=== PATIENT | female | born 1965 | race Caucasian/White ===

== ENCOUNTER 2020-06-27 06:57 | Outpatient (REF) | payer BC, SELFPAY ==
[2020-06-27 11:09] LABS: MANUAL DIFF FLAG NO
[2020-06-27 11:23] LABS: Glucose Urine UA NEG (NEG); Leukocyte Esterase Urine NEG (NEG); Nitrite Urine NEG (NEG); Specific Gravity - Urine <= 1.005 (1.005-1.025); Urine Blood TRACE (NEG); Urine Ketones NEG (NEG); Urine Protein NEG (NEG-TRACE)
[2020-06-27 11:26] LABS: Appearance Urine CLEAR; Color Urine YELLOW
[2020-06-27 11:42] LABS: Alanine Aminotransferase 17 U/L (0-31); Albumin Level 4.2 g/dL (3.5-5.0); Alkaline Phosphatase 63 U/L (39-117); Anion Gap 13 (12-20); Aspartate Amino Transferase 21 U/L (5-31); Bilirubin Total 0.5 mg/dL (0.0-1.0); Blood Urea Nitrogen 11 mg/dL (9-16); Calcium 8.8 mg/dL (8.4-10.2); Carbon Dioxide 29 mmol/L (22-29); Chloride 105 mmol/L (96-108); Cholesterol 145 mg/dL; Estimated Glomerular Filt Rate > 60; Glucose Fasting 89 mg/dL (60-99); HDL Cholesterol 42 mg/dL; LDL Cholesterol Calculated 87 mg/dl; Potassium 5.2 mmol/L (3.3-5.1); Sodium 142 mmol/L (135-145); Total Protein 6.6 g/dL (6.5-8.0); Triglycerides 80 mg/dL
[2020-06-27 11:43] LABS: Basophils Absolute Auto 0.1 X10*3/uL (0.0-0.2); Basophils Percent Auto 0.9 % (0-2); Eosinophils Absolute Auto 0.3 X10*3/uL (0.0-0.4); Eosinophils Percent Auto 4.9 % (0-4); Hematocrit 42.5 % (37-47); Hemoglobin 13.6 g/dl (12.0-16.0); Imm Gran Abs Auto 0.02 X10*3/uL (0.00-0.03); Imm Gran Pct Auto 0.3 % (0.0-0.4); Lymphocytes Absolute Auto 2.5 X10*3/uL (1.2-4.9); Lymphocytes Percent Auto 38.6 % (20-40); Mean Corpuscular Hemoglobin 30.2 pg (27.0-33.0); Mean Corpuscular Volume 94.4 fL (80-98); Mean Platelet Volume 11.4 fL (9.4-12.3); Monocytes Absolute Auto 0.7 X10*3/uL (0.1-1.2); Monocytes Percent Auto 10.3 % (2-11); Neutrophils Absolute Auto 2.9 X10*3/uL (2.0-8.3); Platelet Count 311 X10*3/uL (160-400); Red Cell Distribution Width 12.4 % (11.0-16.0); White Blood Count 6.5 X10*3/uL (4.8-10.8)
[2020-06-27 11:58] LABS: RBC Urine 0-2 /HPF (0); Squamous Epithelial Cell Urine TRACE /LPF; WBC Urine 0 /HPF (0-4)
[2020-06-27 12:05] LABS: TSH reflex Free T4 1.89 uIU/mL (0.32-4.0); Vitamin D 25-OH Total 24.1 ng/mL (>30)
== END 2020-06-27 06:58 | disposition home or self-care (01) ==
LOC: HO.HMGCLDS 06:57
PROVIDERS: PCP Internal Medicine; Visit Provider Internal Medicine
DX: Z00.00 Encounter for general adult medical examination without abnormal findings (principal)
CPT/HCPCS: 36415; 80053; 80061; 81001; 82306; 84443; 85025

== ENCOUNTER 2020-10-27 10:24 | Outpatient (REF) | payer BC, SELFPAY ==
--- NOTE | ~2020-10-27 | CT_ITS ---
EXAMINATION: CT CHEST SCREENING CLINICAL INFORMATION: Smoking history COMPARISON: None. TECHNIQUE: Multidetector volumetric CT imaging of the chest is performed without contrast using low dose technique. Additional 2D coronal and sagittal reformatted images and axial 3D maximum intensity projection (MIP) images are generated on the CT workstation. This CT examination was performed using dose optimization techniques as appropriate, variously including the following: *Automated exposure control *Adjustment of mA and/or kV according to patient size (this includes techniques or standardized protocols for targeted exams where dose is matched to indication/reason for exam; i.e. extremities or head) *Use of iterative reconstruction technique DLP: 45 mGy-cm FINDINGS: LUNGS: There is a 2 mm calcified right upper lobe nodule axial image 119 series 5. There is a 3 mm noncalcified right upper lobe nodule axial 155 series 5. There are increased peripheral interstitial markings seen in the anterior right upper lobe probably related to previous chest wall radiation. There is minimal subsegmental atelectasis at the lung bases. MEDIASTINUM: The mediastinum is normal. PLEURA: There is no pleural effusion. No pleural mass or thickening. AXILLA: There are surgical clips in the right breast. No chest wall mass or enlarged axillary lymph nodes are seen. UPPER ABDOMEN: Unremarkable OSSEOUS STRUCTURES: There are degenerative changes of the spine. CT/CT lung screening IMPRESSION: Small pulmonary nodules. Increased peripheral interstitial markings in the anterior right upper lobe likely related to previous chest wall radiation. Surgical changes in the right breast. ASSESSMENT: Lung-RADS category 2: Benign RECOMMENDATION: Annual low-dose chest CT follow-up recommended.
== END 2020-10-27 10:25 | disposition home or self-care (01) ==
LOC: HO.CT 10:24
PROVIDERS: Visit Provider Surgery
DX: Z12.2 Encounter for screening for malignant neoplasm of respiratory organs (principal); F17.210 Nicotine dependence, cigarettes, uncomplicated
CPT/HCPCS: 71271

== ENCOUNTER 2021-07-18 06:12 | Outpatient (REF) | payer BC, SELFPAY ==
[2021-07-18 11:32] LABS: Appearance Urine HAZY; Color Urine YELLOW; Glucose Urine UA NEG (NEG); Leukocyte Esterase Urine NEG (NEG); Nitrite Urine NEG (NEG); Specific Gravity - Urine 1.015 (1.005-1.025); Urine Blood NEG (NEG); Urine Ketones NEG (NEG); Urine Protein NEG (NEG-TRACE)
[2021-07-18 11:43] LABS: Hematocrit 42.1 % (37.0-47.0); Hemoglobin 13.4 g/dl (12.0-16.0); Mean Corpuscular HGB Conc 31.8 g/dl (31.0-35.0); Mean Corpuscular Hemoglobin 30.2 pg (27.0-33.0); Mean Platelet Volume 11.3 fL (9.4-12.3); Platelet Count 314 X10*3/uL (160-400); Red Blood Count 4.43 X10*6/uL (4.20-5.50); Red Cell Distribution Width 12.4 % (11.0-16.0); White Blood Count 6.8 X10*3/uL (4.8-10.8)
[2021-07-18 11:57] LABS: RBC Urine 0 /HPF (0); WBC Urine 0-2 /HPF (0-4)
[2021-07-18 11:58] LABS: Amorphous Sediment Urine 3+ /LPF; Calcium Oxalate Crystals Urine 3+ /LPF; Squamous Epithelial Cell Urine TRACE /LPF
[2021-07-18 12:03] LABS: Alanine Aminotransferase 20 U/L (0-31); Albumin Level 4.2 g/dL (3.5-5.0); Alkaline Phosphatase 72 U/L (39-117); Anion Gap 10 (12-20); Aspartate Amino Transferase 18 U/L (5-31); Bilirubin Total 0.4 mg/dL (0.0-1.0); Blood Urea Nitrogen 14 mg/dL (9-16); Calcium 9.5 mg/dL (8.4-10.2); Carbon Dioxide 29 mmol/L (22-29); Chloride 106 mmol/L (96-108); Cholesterol 157 mg/dL; Estimated Glomerular Filt Rate > 60; Glucose Fasting 96 mg/dL (60-99); HDL Cholesterol 45 mg/dL; LDL Cholesterol Calculated 98 mg/dl; Potassium 4.2 mmol/L (3.3-5.1); Sodium 141 mmol/L (135-145); Total Protein 6.8 g/dL (6.5-8.0); Triglycerides 70 mg/dL
[2021-07-18 12:27] LABS: TSH reflex Free T4 3.97 uIU/mL (0.32-4.0); Vitamin D 25-OH Total 29.2 ng/mL (>30)
== END 2021-07-18 06:13 | disposition home or self-care (01) ==
LOC: HO.HMGCLDS 06:12
PROVIDERS: Visit Provider Internal Medicine
DX: Z00.00 Encounter for general adult medical examination without abnormal findings (principal); Z13.220 Encounter for screening for lipoid disorders; Z13.29 Encounter for screening for other suspected endocrine disorder
CPT/HCPCS: 36415; 80053; 80061; 81001; 82306; 84443; 85027

== ENCOUNTER 2022-11-23 09:31 | Outpatient (AMB) | payer BC, SELFPAY ==
[2022-11-23 09:33] VITALS: BP 118/64; PULSE 80; O2SAT 98; BMI 22.1
--- NOTE | 2022-11-23 09:33 | A.OFFPC_ITS ---
Vital Signs 11/23/22 09:33 Height 5 ft 8 in Weight 145 lb 2 oz BMI 22.1 BP 118/64 Blood Pressure Location Rt brachial Position Sitting Pulse 80 Pulse Source Pulse Oximeter Pulse Oximetry (%) 98 Oxygen Delivery Method Room Air Intake Visit Reasons: Annual PE Allergies No Known Allergies Allergy (Verified 11/23/22 09:35) Medication List - Last Reconciled 11/23/22 by Amie Phelps MD bisacodyl (Dulcolax (bisacodyl)) 10 mg (2 x 5 mg) PO ONCE 1 day clonazepam 0.5 mg PO DAILY polyethylene glycol 3350 (Miralax) 238 grams PO ONCE 1 day Tobacco use date assessed: 11/23/22 Dental Screening Dental Screen Date: 11/23/22 Did you have a dental visit in the last 12 months?: Yes Did you have a dental problem in the last 6 months where you did not have access to dental care?: No Was dental information given to patient?: Patient has dentist HPI Annual PE HPI Details Pt presents for PE. COUNTS INCLUDE 234 BEDS AT THE [facility] Medical History (Updated 11/23/22 @ 10:07 by Amie Phelps MD) Annual physical exam Anxiety Breast cancer, right Normal Pap smear Tobacco dependence Surgical History H/O colonoscopy Family History Father HTN (hypertension) Mother HTN (hypertension) Mental health disorder Sister Breast cancer Paternal Grandfather Substance use disorder Maternal Grandmother Substance use disorder Sister Mental health disorder Family/Other Mental health disorder Social History Housing: Condominium Alcohol intake: current Alcohol intake frequency: a few times a month Patient Tobacco Use Status: Former Tobacco user (4 weeks ago) e-Cigarette/Vaping Use: Never Used Current occupational status: employed Cognitive needs: No Hearing needs: No Vision needs: No Questionnaire PHQ-9 Over the last 2 weeks, how often have you been bothered by any of the following problems? 1. Little interest or pleasure in doing things: not at all 2. Feeling down, depressed, or hopeless: several days 3. Trouble falling or staying asleep, or sleeping too much: several days 4. Feeling tired or having little energy: several days 5. Poor appetite or overeating: not at all 6. Feeling bad about yourself - or that you are a failure or have let yourself or your family down: several days 7. Trouble concentrating on things, such as reading the newspaper or watching television: not at all 8. Moving or speaking so slowly that other people could have noticed. Or the opposite - being so fidgety or restless that you have been moving around a lot more than usual: not at all 9. Thoughts that you would be better off or of hurting yourself in some way: not at all Total score: 4 Source: Developed by Drs. Willard Ziegler, Gayatri Serrano, Damian Urrutia and colleagues, with an educational pollo from [employer]. Thrive Questionnaire Date Thrive assessed: 11/23/22 I am a: Patient What is your living situation today?: I have a steady place to live Within the past 12 months, did the food you bought not last and you didn't have the money to get more?: Never true Within the past 12 months, did you worry whether your food would run out before you got money to buy more?: Never true Do you have trouble paying for medicines?: No Do you have trouble getting transportation to medical appointments?: No Do you have trouble paying your heating and electricity bill?: No Do you have trouble taking care of your child, family member or friend?: No Do you have trouble with day-to-day activities such as bathing, preparing meals, shopping, managing finances, etc.?: No Are you currently unemployed and looking for a job?: No Are you interested in more education?: No AUDIT C Alcohol Use Questionnaire (AUDIT-C) 1. How often do you have a drink containing alcohol?: 2-4 times a month 2. How many drinks containing alcohol do you have on a typical day when you are drinking?: 3 or 4 3. How often do you have six or more drinks on one occasion?: Monthly Total Score: 5 ALANIS-7 AMB Questionnaire ALANIS-7 Date ALANIS - 7 assessed: 11/23/22 Feeling nervous, anxious, or on edge: 1 = Several days Not being able to stop or control worryin = Several days Worrying too much about different things: 1 = Several days Trouble relaxin = Several days Being so restless that it is hard to sit still: 0 = Not at all Becoming easily annoyed or irritable: 0 = Not at all Feeling afraid as if something awful might happen: 0 = Not at all Total ALANIS-7 score (0-4 normal; 5-9 mild; 10-14 moderate; 15-21 severe): 4 Source: Developed by Drs. Willard Ziegler, Gayatri Serrano, Damian Urrutia and colleagues, with an educational pollo from [employer]. Review of Systems Const All systems reviewed & are unremarkable except as noted in HPI and below Reports no additional complaints Eyes Reports no additional complaints ENT Reports no additional complaints Card Reports no additional complaints Resp Reports no additional complaints GI Reports no additional complaints Reports no additional complaints Physical exam (Primary Care) Vital Signs: Last Vital Signs Pulse 80 11/23/22 09:33 BP 118/64 11/23/22 09:33 Pulse Ox 98 11/23/22 09:33 Oxygen Delivery Method Room Air 11/23/22 09:33 BMI result Body Mass Index 22.1 Tobacco/Smoking Status: Tobacco use Status Tobacco use date assessed 11/23/22 11/23/22 09:39 Patient Tobacco Use Status Former Tobacco user (4 weeks 11/23/22 09:39 ago) e-Cigarette/Vaping Use Never Used 11/23/22 09:39 Thrive Assessment: Date of Thrive Assessment Date Thrive assessed 07/12/21 11/23/22 09:39 Const General: no acute distress HENMT Head: Yes normal to inspection Ears: hearing grossly normal bilaterally Face and sinus: Yes normal facial exam Mouth: Normal oral and palatal mucosa present Throat: Yes posterior oropharynx normal Eyes General: appearance normal, both eyes and all related structures Neck Neck: Yes no lymphadenopathy and Yes supple Resp Effort & Inspection: normal respiratory effort Auscultation: clear to auscultation bilaterally Cardio Rhythm: regular rhythm Heart sounds: S1 normal heart sound present and S2 normal heart sound present GI Inspection: Yes normal to inspection Palpation (GI): Soft to palpation Percussion: Yes normal to percussion Auscultation: normal bowel sounds Assessment and Plan Assessment & Plan (1) Breast cancer, right: Comment: at 49, s/p lumpectomy, on Tamoxifen for 5 years,positive genes, oncology [facility] q 6 months MR/mammogram Code(s): C50.911 - Malignant neoplasm of unspecified site of right female breast (2) Tobacco dependence: Comment: quit 12/2021 Code(s): F17.200 - Nicotine dependence, unspecified, uncomplicated (3) Anxiety: Code(s): F41.9 - Anxiety disorder, unspecified (4) Annual physical exam: Code(s): Z00.00 - Encounter for general adult medical examination without abnormal findings Plan: Well-balanced diet regular exercise discussed with the patient. 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 Panel Fast Today C50.911 - Malignant neoplasm of unspecified site of right female breast, F17.200 - Nicotine dependence, unspecified, uncomplicated, F41.9 - Anxiety disorder, unspecified, Z00.00 - Encounter for general adult medical examination without abnormal findings Lipid Panel Today C50.911 - Malignant neoplasm of unspecified site of right female breast, F17.200 - Nicotine dependence, unspecified, uncomplicated, F41.9 - Anxiety disorder, unspecified, Z00.00 - Encounter for general adult medical examination without abnormal findings TSH reflex Free T4 Today C50.911 - Malignant neoplasm of unspecified site of right female breast, F17.200 - Nicotine dependence, unspecified, uncomplicated, F41.9 - Anxiety disorder, unspecified, Z00.00 - Encounter for general adult medical examination without abnormal findings Complete Blood Count no Diff Today C50.911 - Malignant neoplasm of unspecified site of right female breast, F17.200 - Nicotine dependence, unspecified, uncomplicated, F41.9 - Anxiety disorder, unspecified, Z00.00 - Encounter for general adult medical examination without abnormal findings UA w Microscopic Today C50.911 - Malignant neoplasm of unspecified site of right female breast, F17.200 - Nicotine dependence, unspecified, uncomplicated, F41.9 - Anxiety disorder, unspecified, Z00.00 - Encounter for general adult medical examination without abnormal findings XR DEXA axial skeleton Today Z78.0 - Asymptomatic menopausal state Referrals General Surgery Referral L72.9 - Follicular cyst of the skin and subcutaneous tissue, unspecified Coding Level of Care Code Est Pt Prev Care 40-64y(52826) Diagnoses Breast cancer, right C50.911 Tobacco dependence F17.200 Anxiety F41.9 Annual physical exam Z00.00 Normal Pap smear Skin cysts, generalized L72.9 Postmenopausal Z78.0
== END 2022-11-23 10:08 | disposition home or self-care (01) ==
PROVIDERS: PCP Internal Medicine; Visit Provider Internal Medicine
DX: C50.911 Malignant neoplasm of unspecified site of right female breast (principal); F17.200 Nicotine dependence, unspecified, uncomplicated; F41.9 Anxiety disorder, unspecified; Z00.00 Encounter for general adult medical examination without abnormal findings; L72.9 Follicular cyst of the skin and subcutaneous tissue, unspecified; Z78.0 Asymptomatic menopausal state
CPT/HCPCS: 99396

== ENCOUNTER 2022-12-07 09:38 | Outpatient (AMB) | payer BC, SELFPAY ==
--- NOTE | 2022-12-07 09:40 | A.OFFVIS_ITS ---
Intake Vital Signs 12/07/22 09:55 Height 5 ft 8 in Weight 145 lb 8 oz BMI 22.1 BP 143/70 H Blood Pressure Location Lt brachial Position Sitting Intake Visit Reasons: skin cysts Intake Note: Patient is seen in office for evaluation and treatment of a skin cyst of the back. Patient c/o: onset for yrs, got infected once and was lanced, has increase in size, denies discharge, redness or swelling or other concerns Logistics Associate Required: No Accompanied by: Self / Same As Patient Allergies No Known Allergies Allergy (Verified 12/07/22 09:52) Medication List - Last Reconciled 12/07/22 by Walt Shaikh MD clonazepam 0.5 mg PO DAILY HPI HPI Comments History of Present Illness Details 57-year-old female patient presenting for evaluation of several sebaceous cysts of the back. They have been present for many years and have gradually increased in size. She reports 2 of the lesions have become infected and required drainage. She denies any current pain, redness or discharge but is concerned about the size of the lesions. She is requesting excision of all 3 lesions if possible. She has had other lesions located in the armpit and abdomen 1 of which was excised in the 2nd of which resolved spontaneously. [facility] Medical History Annual physical exam Anxiety Breast cancer, right Normal Pap smear Tobacco dependence Surgical History H/O colonoscopy Family History Father HTN (hypertension) Mother HTN (hypertension) Mental health disorder Sister Breast cancer, Onset Age: 53 Paternal Grandfather Substance use disorder Maternal Grandmother Substance use disorder Sister Mental health disorder Breast cancer, Onset Age: 62 Family/Other Mental health disorder Social History Housing: Condominium Alcohol intake: current Alcohol intake frequency: a few times a month Patient Tobacco Use Status: Former Tobacco user (4 weeks ago) e-Cigarette/Vaping Use: Never Used Current occupational status: employed Cognitive needs: No Hearing needs: No Vision needs: No Review of Systems Const All systems reviewed & are unremarkable except as noted in HPI and below Denies chills, Denies fever(s), Denies headache(s), Denies poor appetite and Denies weakness ENT Denies headache(s) Card Denies chest pain, Denies irregular heart rhythm, Denies palpitations and Denies dyspnea Resp Denies cough, Denies excessive phlegm production and Denies dyspnea GI Denies abdominal pain, Denies bloating, Denies change in bowel habits, Denies constipation, Denies heartburn, Denies diarrhea, Denies nausea and Denies vomiting Denies urinary frequency Musc Denies back pain, Denies muscle weakness and Denies numbness Skin/Breast Reports as per HPI, Denies changing lesions and Denies unusual bruising Neuro Denies headache(s), Denies numbness, Denies paresthesias and Denies weakness Psych Denies anxiety and Denies depression Endo Denies palpitations [place]/Lymph Denies lymphadenopathy Physical Exam Vital Signs: Last Vital Signs BP 143/70 H 12/07/22 09:55 BMI result Body Mass Index 22.1 Const General: cooperative and no acute distress Nutritional Appearance: well nourished Orientation/consciousness: patient oriented x3 Limitations: no limitations HEENT Head: Yes normocephalic and Yes atraumatic Ears: hearing grossly normal bilaterally Resp Effort & Inspection: normal respiratory effort, no audible wheezes, no cough and no respiratory distress Cardio Jugular venous distension: no JVD GI Inspection: Yes normal to inspection Back/Spine/Pelvis Back/spine/pelvis image: 1. 3 cm sebaceous cyst 2. 1.5 cm sebaceous cyst 3. 1 cm sebaceous cyst Skin Other: Warm, dry, no rash, skin lesions as noted above. Neuro General: patient oriented x3 Extrem General: Yes no clubbing, cyanosis or edema Assessment & Plan Assessment & Plan (1) Skin cysts, generalized: Comment: upper back 2 cm and 5 cm in diameter Code(s): L72.9 - Follicular cyst of the skin and subcutaneous tissue, unspecified Plan 57-year-old female patient presenting with several sebaceous cyst which are increasing in size and of previously become infected. Patient is requested excision which certainly seems like a good idea given the size of the lesions. I reviewed the procedure, risks, and alternatives and recommended an excision under local anesthesia as a minor surgery. She consents to the surgery and will be scheduled at her convenience. Coding Level of Care Code New Pt Level 4 (62406) Diagnoses Skin cysts, generalized L72.9
[2022-12-07 09:55] VITALS: BP 143/70; BMI 22.1
== END 2022-12-07 10:01 | disposition home or self-care (01) ==
PROVIDERS: PCP Internal Medicine; Visit Provider Surgery
DX: L72.9 Follicular cyst of the skin and subcutaneous tissue, unspecified (principal)
CPT/HCPCS: 99204

== ENCOUNTER → 2022-12-07 09:38 | Outpatient (BNVA) | payer BC, SELFPAY | PROVIDERS: PCP Internal Medicine; Visit Provider Surgery ==

== ENCOUNTER 2022-12-18 06:31 | Outpatient (REF) | payer BC, SELFPAY ==
[2022-12-18 11:53] LABS: Appearance Urine Clear; Color Urine Yellow; Glucose Urine UA Negative (Negative); Leukocyte Esterase Urine Negative (Negative); Nitrite Urine Negative (Negative); Specific Gravity - Urine 1.015 (1.005-1.025); Urine Blood Negative (Negative); Urine Ketones Negative (Negative); Urine Protein Negative (Neg-Trace)
[2022-12-18 11:59] LABS: Bacteria Urine None Seen (None Seen); Hyaline Casts Urine 0-2 /LPF (0-2); RBC Urine 0-2 /HPF (0-2); Squamous Epithelial Cell Urine 0-2 /HPF (0-2); WBC Urine 0-5 /HPF (0-5)
[2022-12-18 12:00] LABS: Hematocrit 42.2 % (37.0-47.0); Hemoglobin 13.6 g/dl (12.0-16.0); Mean Corpuscular HGB Conc 32.2 g/dl (31.0-35.0); Mean Corpuscular Hemoglobin 30.8 pg (27.0-33.0); Mean Corpuscular Volume 95.7 fL (80.0-98.0); Mean Platelet Volume 10.9 fL (9.4-12.3); Platelet Count 338 X10*3/uL (160-400); Red Blood Count 4.41 X10*6/uL (4.20-5.50); Red Cell Distribution Width 12.2 % (11.0-16.0); White Blood Count 6.7 X10*3/uL (4.8-10.8)
[2022-12-18 12:11] LABS: Alanine Aminotransferase 17 U/L (0-31); Albumin Level 4.1 g/dL (3.5-5.0); Alkaline Phosphatase 96 U/L (39-117); Anion Gap 15 (12-20); Aspartate Amino Transferase 21 U/L (5-31); Bilirubin Total 0.5 mg/dL (0.0-1.0); Blood Urea Nitrogen 9 mg/dL (9-16); Calcium 9.7 mg/dL (8.4-10.2); Carbon Dioxide 26 mmol/L (22-29); Chloride 105 mmol/L (96-108); Cholesterol 166 mg/dL (<200); Estimated Glomerular Filt Rate > 60; Glucose Fasting 95 mg/dL (60-99); HDL Cholesterol 56 mg/dL (>40); LDL Cholesterol Calculated 93 mg/dL (<100); Potassium 3.9 mmol/L (3.3-5.1); Sodium 142 mmol/L (135-145); Total Protein 6.7 g/dL (6.5-8.0); Triglycerides 87 mg/dL (<150)
[2022-12-18 12:28] LABS: TSH reflex Free T4 2.73 uIU/mL (0.32-4.0)
== END 2022-12-18 06:32 | disposition home or self-care (01) ==
LOC: HO.HMGCLDS 06:31
PROVIDERS: PCP Internal Medicine; Visit Provider Internal Medicine
DX: Z00.00 Encounter for general adult medical examination without abnormal findings (principal); F41.9 Anxiety disorder, unspecified; F17.200 Nicotine dependence, unspecified, uncomplicated; C50.911 Malignant neoplasm of unspecified site of right female breast
CPT/HCPCS: 36415; 80053; 80061; 81001; 84443; 85027

== ENCOUNTER 2022-12-25 07:29 | Day surgery (SDC) | payer BC, SELFPAY ==
[2022-12-20 09:39] VITALS: BMI 22.0
--- NOTE | 2022-12-21 12:35 | HO.ANESPROP2 ---
Documented by User: Samanta Barajas NP 12/21/22 12:56 HPI - Anesthesia Eval Consult details Narrative: 57yo F for Colonoscopy PMFSH Active Problems Active Problems: All Active Problems (Updated 12/20/22 @ 09:33 by Mary Cooper RN) Encounter for screening colonoscopy (Acute) Chronic constipation (Acute) Skin cysts, generalized (Acute) Postmenopausal (Acute) Breast cancer, right (Acute) Anxiety (Acute) Tobacco dependence (Acute) Normal Pap smear (Acute) Annual physical exam (Acute) Past Medical History Medical History Annual physical exam Anxiety Breast cancer, right Normal Pap smear Tobacco dependence Family History Family History Father HTN (hypertension) Mother HTN (hypertension) Mental health disorder Sister Breast cancer, Onset Age: 53 Paternal Grandfather Substance use disorder Maternal Grandmother Substance use disorder Sister Mental health disorder Breast cancer, Onset Age: 62 Family/Other Mental health disorder Surgical History Surgical History H/O colonoscopy History of lumpectomy of right breast Social History Social History Housing: Condominium Alcohol intake: current Alcohol intake frequency: a few times a week Patient Tobacco Use Status: Current everyday Tobacco user Tobacco use type: Cigarette Cigarettes Per Day: 15 Years Smoked: 40 Smoked in Last 30 Days: Yes e-Cigarette/Vaping Use: Never Used Use of substances other than those prescribed or required for medical reasons: Yes Substance Use Frequency: Daily Are you DNR?: No Advance Directives: No Advance Directives Information Provided: Yes Current occupational status: employed Cognitive needs: No Hearing needs: No Vision needs: No Meds Allergies Allergy/AdvReac Type Severity Reaction Status Date / Time No Known Allergies Allergy Verified 12/25/22 07:50 Home Medications Medication Instructions Recorded Confirmed Last Taken Type clonazepam 0.5 mg tablet 0.5 mg PO NEEDED PRN Anxiety 12/25/22 12/25/22 12/24/22 21:00 History Exam Exam Date and Time: December 21, 2022 1235 Height,Weight and Vital Signs: Height 5 ft 8 in Weight 65.771 kg Pertinent Lab Results Pertinent Lab Results: Laboratory Tests 12/18/22 12/18/22 06:37 06:37 WBC 6.7 Hgb 13.6 Hct 42.2 Plt Count 338 Sodium 142 Potassium 3.9 Chloride 105 Carbon Dioxide 26 BUN 9 Creatinine 0.66 Assessment and Plan Assessment Anesthesia Assessment: Chart Reviewed Documented by User: Erica Bean MD 12/25/22 09:04 [facility] Active Problems Active Problems: All Active Problems (Updated 12/25/22 @ 08:55 by Erica Baen MD) Encounter for screening colonoscopy (Acute) Chronic constipation (Acute) Skin cysts, generalized (Acute) Postmenopausal (Acute) Breast cancer, right (Acute) Anxiety (Acute) Tobacco dependence (Acute) Normal Pap smear (Acute) Annual physical exam (Acute) Smoker. Last cigarette this morning Past Medical History Medical History Annual physical exam Anxiety Breast cancer, right Normal Pap smear Tobacco dependence Family History Family History Father HTN (hypertension) Mother HTN (hypertension) Mental health disorder Sister Breast cancer, Onset Age: 53 Paternal Grandfather Substance use disorder Maternal Grandmother Substance use disorder Sister Mental health disorder Breast cancer, Onset Age: 62 Family/Other Mental health disorder Family history of problems with anesthesia: No Surgical History Surgical History H/O colonoscopy History of lumpectomy of right breast History of Problems with Anesthesia: No Social History Social History Housing: Condominium Alcohol intake: current Alcohol intake frequency: a few times a week Patient Tobacco Use Status: Current everyday Tobacco user Tobacco use type: Cigarette Cigarettes Per Day: 15 Years Smoked: 40 Smoked in Last 30 Days: Yes e-Cigarette/Vaping Use: Never Used Use of substances other than those prescribed or required for medical reasons: Yes Substance Use Frequency: Daily Are you DNR?: No Advance Directives: No Advance Directives Information Provided: Yes Current occupational status: employed Cognitive needs: No Hearing needs: No Vision needs: No Meds Allergies Allergy/AdvReac Type Severity Reaction Status Date / Time No Known Allergies Allergy Verified 12/25/22 07:50 Home Medications Medication Instructions Recorded Confirmed Last Taken Type clonazepam 0.5 mg tablet 0.5 mg PO NEEDED PRN Anxiety 12/25/22 12/25/22 12/24/22 21:00 History Exam Height,Weight and Vital Signs: Height 5 ft 8 in Weight 65.771 kg Vital Signs Temp Pulse Resp BP Pulse Ox O2 Del Method 12/25/22 08:01 97.7 F 77 16 132/71 100 Room Air Airway Mallampati Class: II TM Dist: >3cm Neck ROM: Full Loose/Missing/Broken Teeth: No (Denies broken, loose, missing teeth) Heart: RRR Lungs: CTAB Assessment and Plan Assessment Anesthesia Assessment: Anesthesia Plan Discussed Final Anesthetic Review Family History of Problems with Anesthesia: No History of Problems with Anesthesia: No NPO: Yes ASA Class: II Final Preanesthetic Review: No Changes in Pt Med Stat, Meds/Allgs Chart Reviewed, Consent Obtained/Reviewed and Anes Risks/Benef Reviewed Patient Risk: Intermediate Procedure Risk: Low Assessment/Block/Sedation in SS: Assess/Block/Sedation-SS Anesthetic Plan Anesthetic Plan: MAC: Disposition: Standard PACU
[2022-12-25 08:01] VITALS: BP 132/71; PULSE 77; RESP 16; TEMP 36.5; O2SAT 100; BMI 22.2
[2022-12-25] MEDS: Lactated Ringers 1,000 ML 100 ML IVCONT (08:39)
--- NOTE | 2022-12-25 09:00 | MHC.SHP ---
Pre-Procedural Eval Section A Date of Service: 12/25/22 Section B Chief Complaint: Other constipation Relevant Family History (Specify if Yes): No Relevant Social History: Tobacco Use Present Medications: see Short Stay Collaborative assessment Medical History: Significant History (Anxiety Breast cancer, right Normal Pap smear Tobacco dependence) History of Previous Operations: Relevant previous surgery/procedure and date(s) (colonoscopy) Allergies: Allergies Allergy/AdvReac Type Severity Reaction Status Date / Time No Known Allergies Allergy Verified 12/25/22 07:50 Review of Systems Sugical H&P ROS: Negative: Constitution, Cardiovascular, Respiratory, Neurological, Psychiatric, Hem-Onc, Allergic/Immunologic, Gastrointestinal, Genitourinary, Musculoskeletal, Integumentary, Endocrine and Eyes/Ears/Nose/Throat Exam Surgical H&P Exam: Normal: HEENT, Normal: Heart, Normal: Lungs, Normal: Extremities, Normal: Abdomen, Normal: Skin and Normal: Neurological Plan Diagnosis/Plan: Unchanged I have reviewed the history and physical and performed a pertinent physical examination on my patient. No changes have occurred unless specified. Time Spent With Patient Time: Total time managing care of this patient today ____ minutes.
--- NOTE | 2022-12-25 09:01 | W.PM.OPN ---
Operative Note Operative Note Date of Service: 12/25/22 Narrative: Operative Information Procedure Description: Colonoscopy Indication: screening Anesthesia: MAC COLONOSCOPY Instrument: Olympus variable stiffness pediatric scope 190L Colonoscopy Monitoring: Vital signs and clinical assessment, continuous EKG monitoring, Pulse oximetry, Carbon Dioxide monitoring and blood pressure monitoring were done throughout the procedure. Colon withdrawal time was 12 minutes. Procedure: The patient was placed in the left lateral decubitis position and pre-procedure medications were administered. After a digital rectal examination of the ano-rectum, the video colonoscope was inserted into the rectum and advanced through the colon to the cecum/TI. The colonoscope was slowly withdrawn in a retrograde panoramic fashion and the colon mucosa was carefully examined including a retroflexed view of the rectum. Findings and interventions are described below. Procedure Difficulty: moderate due to tortuous colon Findings: Terminal Ileum-normal Cecum:normal Ascending Colon: normal Transverse Colon -normal Descending Colon:normal Sigmoid Colon: normal Rectum: Retroflexion with small internal hemorrhoids, grade I Anorectum - normal Colon preparation: [place] Bowel Preparation Scale Right colon; 3 Transverse colon: 3 Left colon; 3 (0 = Unprepared colon segment with mucosa not seen due to solid stool that cannot be cleared. 1 = Portion of mucosa of the colon segment seen, but other areas of the colon segment not well seen due to staining, residual stool and/or opaque liquid. 2 = Minor amount of residual staining, small fragments of stool and/or opaque liquid, but mucosa of colon segment seen well. 3 = Entire mucosa of colon segment seen well with no residual staining, small fragments of stool or opaque liquid) Impression and Post Procedure Diagnosis: tortuous colon internal hemorrhoids Plan: High fiber diet leaflet Avoid straining at stool, epsom salts and sitz bath, anusol supps or cream Repeat Colonoscopy in 10 years or earlier if clinically indicated Above findings were reviewed with the patient and relevant handouts were provided if indicated.
[2022-12-25 09:44] VITALS: BP 105/60; PULSE 82; RESP 16; TEMP 36.1; O2SAT 97
[2022-12-25 09:59] VITALS: BP 115/76; PULSE 71; RESP 16; TEMP 36.1; O2SAT 97
== END 2022-12-25 10:36 | disposition home or self-care (01) ==
PROVIDERS: PCP Internal Medicine; Visit Provider Internal Medicine Gastroenterology
PROC: 0DJD8ZZ Inspection of Lower Intestinal Tract, Via Natural or Artificial Opening Endoscopic (ICD-10-PCS; CPT 45378; principal; 2022-12-25 09:00)
DX: Z12.11 Encounter for screening for malignant neoplasm of colon (principal); K56.2 Volvulus; K64.0 First degree hemorrhoids; K59.09 Other constipation; Z85.3 Personal history of malignant neoplasm of breast; Z87.891 Personal history of nicotine dependence
CPT/HCPCS: 45378

== ENCOUNTER → 2022-12-25 07:29 | Outpatient (BNV) | payer BC, SELFPAY | PROVIDERS: PCP Internal Medicine; Visit Provider Internal Medicine Gastroenterology | DX: Z12.11 Encounter for screening for malignant neoplasm of colon (principal); K64.0 First degree hemorrhoids | CPT/HCPCS: 45378 ==

== ENCOUNTER 2023-01-08 08:40 | Outpatient (REF) | payer BC, SELFPAY ==
--- NOTE | ~2023-01-08 | MM_ITS ---
EXAMINATION: BONE DENSITOMETRY CLINICAL INDICATION: Menopause. COMPARISON: This is the patient's baseline examination. TECHNIQUE: Using a Etix DXA System (software version: 13.1) manufactured by [employer], dual-energy x-ray absorptiometry was performed of the lumbar spine and left hip. The images are of good technical quality. Summary results are attached. FINDINGS: LEFT FEMUR, NECK: BMD 0.852 g/cm2, Z-score -0.2, T-score -1.3, osteopenia. LEFT FEMUR, TOTAL: BMD 0.752 g/cm2, Z-score -1.2, T-score -2.0, osteopenia. AP SPINE L1-L4: BMD 1.268 g/cm2, Z-score 1.8, T-score 0.7, normal. IDENTIFIED RISK FACTORS: Menopause, tobacco use (current smoker). HISTORY OF FRACTURE: None listed. MEDICATIONS: Calcium, vitamin D. MM/XR DEXA axial skeleton IMPRESSION: 1. DIAGNOSIS: Osteopenia based on the lowest T-score value of -2.0 in the total femur applying World Health Organization criteria. 2. 10-YEAR FRACTURE RISK PREDICTION, FRAX: Major osteoporotic fracture (clinical spine, forearm, hip or shoulder) 7.3%. Hip fracture 0.9%. 3. Treatment Recommendations: NOF guidelines recommend consideration for treatment in postmenopausal women and men age 50 and older presenting with the following: -A hip or vertebral (clinical or morphometric) fracture. -T-score less than or equal to -2.5 at the femoral neck or spine after appropriate evaluation to exclude secondary causes. -Low bone mass at the hip or spine and a 10-year fracture probability by FRAX of greater than or equal to 3% for hip fracture or greater than or equal to 20% for major osteoporotic fracture based on the [place] adapted WHO algorithm. 4. Other Recommendations: All treatment decisions require clinical judgment and consideration of individual patient factors, including patient preferences, comorbidities, previous drug use, risk factors not captured in the FRAX model (e.g. frailty, falls, vitamin D deficiency, increased bone turnover, interval significant decline in bone density) and possible under or overestimation of fracture risk by FRAX. Additional medical evaluation for secondary cause of low bone mineral density may be appropriate. FUTURE SCAN RECOMMENDATION: People with diagnosed cases of osteoporosis or at high risk for fracture should have regular bone mineral density tests. For patients eligible for Medicare, routine testing is allowed once every 2 years. The testing frequency can be increased to one year for patients who have rapidly progressing disease, those who are receiving or discontinuing medical therapy to restore bone mass, or have additional risk factors.
== END 2023-01-08 08:41 | disposition home or self-care (01) ==
LOC: HO.MAMMO 08:40
PROVIDERS: PCP Internal Medicine; Visit Provider Internal Medicine
DX: Z13.820 Encounter for screening for osteoporosis (principal); Z78.0 Asymptomatic menopausal state
CPT/HCPCS: 77080

== ENCOUNTER 2023-01-31 10:24 | Outpatient (AMB) | payer BC, SELFPAY ==
--- NOTE | 2023-01-31 10:26 | MHC.OFFVIS ---
Intake Vital Signs 01/31/23 10:32 Height 5 ft 8 in Weight 145 lb 8.081 oz BMI 22.1 BP 125/64 Blood Pressure Location Lt brachial Position Sitting Pulse 64 Intake Visit Reasons: S/P Colon- Intake Note: Noreen presents in the office as a follow up colonoscopy. CC: Allergies No Known Allergies Allergy (Verified 01/31/23 10:36) HPI HPI Comments History of Present Illness Details A 57 y/o female f/u after screening colonoscopy- She tolerated procedure well. She has just recently recovered from COVID feeling well A appetite is good Bowels are typically constipated however have been Normal She has no GI or general complaints No nausea, vomiting, hematemesis, hematochezia fever or chills PFSH Medical History (Updated 01/31/23 @ 10:35 by Sakina Rai PA-C) Anxiety Tobacco dependence Normal Pap smear Annual physical exam Breast cancer, right Surgical History History of lumpectomy of right breast H/O colonoscopy Family History Father HTN (hypertension) Mother HTN (hypertension) Mental health disorder Sister Breast cancer, Onset Age: 53 Paternal Grandfather Substance use disorder Maternal Grandmother Substance use disorder Sister Mental health disorder Breast cancer, Onset Age: 62 Family/Other Mental health disorder Social History Housing: Condominium Alcohol intake: current Alcohol intake frequency: a few times a week Patient Tobacco Use Status: Current everyday Tobacco user Tobacco use type: Cigarette Cigarettes Per Day: 15 Years Smoked: 40 e-Cigarette/Vaping Use: Never Used Current occupational status: employed Cognitive needs: No Hearing needs: No Vision needs: No Review of Systems Const All systems reviewed & are unremarkable except as noted in HPI and below Card Denies chest pain and Denies dyspnea Resp Denies dyspnea GI Denies abdominal pain Physical Exam Vital Signs: Last Vital Signs Pulse 64 01/31/23 10:32 BP 125/64 01/31/23 10:32 BMI result Body Mass Index 22.1 Const General: cooperative, healthy appearing, comfortable and no acute distress Orientation/consciousness: patient oriented x3 Limitations: no limitations Resp Effort & Inspection: normal respiratory effort and able to speak in complete sentences Neuro General: patient oriented x3 Extrem General: Yes full ROM Psych Appearance: grossly normal and well kempt Mental Status: mental status grossly normal Speech and movement: Normal speech and movement present and Clear speech present Affect: normal affect Attitude: cooperative Thought process: Normal thought process present Thought content: Normal thought content present Insight: Good insight present (Psych) Judgement: Good judgement present (Psych) Results Reviewed Results Reviewed: Impression and Post Procedure Diagnosis: tortuous colon internal hemorrhoids Plan: High fiber diet leaflet Avoid straining at stool, epsom salts and sitz bath, anusol supps or cream Repeat Colonoscopy in 10 years or earlier if clinically indicated Assessment & Plan Assessment & Plan (1) Hemorrhoids: Code(s): K64.9 - Unspecified hemorrhoids Plan: HFD avoid straining (2) Chronic constipation: Code(s): K59.09 - Other constipation Plan: HFD Plan 10 year colonoscopy HFD Patient Instructions: 10 year colonoscopy HFD Avoid straining Coding Level of Care Code Est Pt Level 3 (50441) Diagnoses Hemorrhoids K64.9 Chronic constipation K59.09 Time Spent (min) 20
[2023-01-31 10:32] VITALS: BP 125/64; PULSE 64; BMI 22.1
== END 2023-01-31 11:40 | disposition home or self-care (01) ==
PROVIDERS: PCP Internal Medicine; Visit Provider Physician Assistant
DX: K64.9 Unspecified hemorrhoids (principal); K59.09 Other constipation
CPT/HCPCS: 99213

== ENCOUNTER → 2023-01-31 10:24 | Outpatient (BNVA) | payer BC, SELFPAY | PROVIDERS: PCP Internal Medicine; Visit Provider Physician Assistant ==

== ENCOUNTER 2023-02-28 12:57 | Outpatient (REF) | payer BC, SELFPAY ==
[2023-02-28 13:05] VITALS: BMI 23.6
[2023-02-28 13:06] VITALS: BP 152/82; PULSE 81; RESP 16; TEMP 36.4; O2SAT 97
[2023-02-28 13:55] VITALS: BP 129/73; PULSE 71; RESP 16; O2SAT 98
--- NOTE | 2023-02-28 14:11 | P.OP_ITS ---
Operative Note Operative Note Date of Service: 02/28/23 Narrative: Preoperative diagnosis: Sebaceous cyst x3 of back Postoperative diagnosis: Same Procedure: Excision of sebaceous cyst x3 of back Surgeon: Walt Shaikh MD Secretary To The Vice President: Shavon Mercer PA-C Anesthesia: Local Sensorcaine 0.5% with epinephrine Indications for procedure: 57-year-old female patient presenting with 3 enlarging sebaceous cysts of which were previously infected. These are located in upper back includes a 2 cm cyst in the upper mid back a 2nd 1.5 cm cyst slightly above this and the 3rd 1.5 cm cyst over the right posterior shoulder. There is no evidence of acute infection at this time. Operative findings: Sebaceous cyst x3 as noted above Specimen: Sebaceous x3 back Estimated blood loss: 2 mL Complications: None Procedure details: Patient was brought minor surgery suite and placed in a prone position. The site of surgery was confirmed by the patient in the back. After assuring informed consent the skin was prepped with Betadine and draped in a sterile fashion. Beginning with the larger midline cyst local anesthesia was infiltrated around the lesion. Elliptical incision oriented longitudinally was then created with the scalpel. This was carried out through subcutaneous tissue and around the cyst wall. The lesion was passed off the table and sent to pathology for further examination. Light pressure was held to maintain hemostasis. Dermis was then reapproximated using interrupted 3-0 Polysorb sutures. Skin was closed using interrupted 4-0 nylon suture. Attention was then directed to the upper midline back cyst. Again local was infiltrated around the lesion an elliptical incision created a longitudinal fashion. The incision was carried out through subcutaneous tissue and around the cyst wall. Lesion was completely excised and sent to pathology for further examination. Dermis was reapproximated using interrupted 3-0 Polysorb sutures and skin closed using 4-0 nylon sutures. Attention was then directed to the right posterior shoulder lesion which were again was anesthetized using the local anesthesia. Elliptical incision oriented longitudinally was then created with scalpel and carried out through subcutaneous tissue. The cyst was then excised completely from the subcutaneous tissue. The cyst was passed off the table and sent to pathology for further examination. Dermis was reapproximated using interrupted 3-0 Polysorb sutures and skin closed using a 4-0 nylon suture. Sterile dressings consisting of 2 x 2 gauze and Tegaderm were then applied to all 3 lesions. The patient tolerated the procedure well. She was discharged to home in stable condition.
== END 2023-02-28 12:58 | disposition home or self-care (01) ==
LOC: HO.MS 12:57
PROVIDERS: PCP Internal Medicine; Visit Provider Surgery
PROC: (CPT 11402; principal; 2023-02-28 13:00)
DX: L72.3 Sebaceous cyst (principal)
CPT/HCPCS: 11402 ×3; 88304

== ENCOUNTER → 2023-02-28 12:57 | Outpatient (BNV) | payer BC, SELFPAY | PROVIDERS: PCP Internal Medicine; Visit Provider Surgery | DX: L72.0 Epidermal cyst (principal) | CPT/HCPCS: 11402 ==

== ENCOUNTER 2023-03-12 14:45 | Outpatient (AMB) | payer BC, SELFPAY ==
--- NOTE | 2023-03-12 14:47 | A.OFFVIS_ITS ---
Intake Vital Signs 03/12/23 14:56 Height 5 ft 6 in Weight 151 lb BMI 24.4 BP 132/71 Blood Pressure Location Lt brachial Position Sitting Pulse 75 Intake Visit Reasons: S/P excision sebaceous cyst x3 of back Intake Note: Patient is seen in office for post op assessment post excision of sebaceous cyst x3 of back. Patient c/o: denies any concerns sutures removed at visit MS:02/28/23 Environmental Services Tech Required: No Accompanied by: Self / Same As Patient Allergies No Known Allergies Allergy (Verified 03/12/23 14:56) HPI HPI Comments History of Present Illness Details 57-year-old female patient returning fol lowing excision of 3 sebaceous cyst of the back. She tolerated the procedure well and returns today for suture removal. Pathology confirmed epidermal inclusion cyst. [facility] Medical History (Updated 01/31/23 @ 10:35 by Saknia Rai PA-C) Anxiety Tobacco dependence Normal Pap smear Annual physical exam Breast cancer, right Surgical History History of excision of mass (02/28/23) History of lumpectomy of right breast H/O colonoscopy Family History Father HTN (hypertension) Mother HTN (hypertension) Mental health disorder Sister Breast cancer, Onset Age: 53 Paternal Grandfather Substance use disorder Maternal Grandmother Substance use disorder Sister Mental health disorder Breast cancer, Onset Age: 62 Family/Other Mental health disorder Housing: Condominium Alcohol intake: current Alcohol intake frequency: a few times a week Patient Tobacco Use Status: Current everyday Tobacco user Tobacco use type: Cigarette Cigarettes Per Day: 15 Years Smoked: 40 e-Cigarette/Vaping Use: Never Used Current occupational status: employed Cognitive needs: No Hearing needs: No Vision needs: No Physical Exam Vital Signs: Last Vital Signs Pulse 75 03/12/23 14:56 BP 132/71 03/12/23 14:56 BMI result Body Mass Index 24.4 Const General: comfortable Nutritional Appearance: well nourished Back/Spine/Pelvis Other: Excision site in the upper back is clean, dry, and intact without redness or discharge. Sutures removed in the incisions found to be well healed. Assessment & Plan Assessment & Plan (1) Skin cysts, generalized: Comment: upper back 2 cm and 5 cm in diameter Code(s): L72.9 - Follicular cyst of the skin and subcutaneous tissue, unspecified Plan 57-year-old female patient status post excision of 3 epidermal inclusion cyst of the upper back. She tolerated the procedure well the wounds are healing nicely. She should follow up as needed. Coding Level of Care Code Global (35631) Diagnoses Skin cysts, generalized L72.9
[2023-03-12 14:56] VITALS: BP 132/71; PULSE 75; BMI 24.4
== END 2023-03-12 15:00 | disposition home or self-care (01) ==
PROVIDERS: PCP Internal Medicine; Visit Provider Surgery
DX: L72.9 Follicular cyst of the skin and subcutaneous tissue, unspecified (principal)
CPT/HCPCS: 99024

== ENCOUNTER → 2023-03-12 14:45 | Outpatient (BNVA) | payer BC, SELFPAY | PROVIDERS: PCP Internal Medicine; Visit Provider Surgery ==

== ENCOUNTER 2023-12-05 08:21 | Outpatient (AMB) | payer OTHER, SELFPAY ==
[2023-12-05 08:24] VITALS: BP 136/80; PULSE 78; O2SAT 97; BMI 25.7
--- NOTE | 2023-12-05 08:24 | A.OFFPC_ITS ---
Vital Signs 12/05/23 08:24 Height 5 ft 6 in Weight 159 lb BMI 25.7 BP 136/80 Blood Pressure Location Lt brachial Position Sitting Pulse 78 Pulse Source Pulse Oximeter Pulse Oximetry (%) 97 Oxygen Delivery Method Room Air Intake Visit Reasons: Annual PE Intake Note: Pt is here today for PE. Allergies No Known Allergies Allergy (Verified 12/05/23 08:24) Medication List - Last Reconciled 12/05/23 by Amie Phelps MD clonazepam 0.5 mg PO NEEDED PRN Tobacco use date assessed: 12/05/23 Dental Screening Dental Screen Date: 12/05/23 Did you have a dental visit in the last 12 months?: Yes Did you have a dental problem in the last 6 months where you did not have access to dental care?: No Was dental information given to patient?: Patient has dentist HPI Annual PE HPI Details Pt presents for PE. [facility] Medical History (Updated 12/05/23 @ 09:09 by Amie Phelps MD) Anxiety Tobacco dependence Normal Pap smear Annual physical exam Breast cancer, right Surgical History (Updated 12/05/23 @ 08:46 by Amie Phelps MD) History of excision of mass (02/28/23) History of lumpectomy of right breast H/O colonoscopy Family History Father HTN (hypertension) Mother HTN (hypertension) Mental health disorder Sister Breast cancer, Onset Age: 53 Paternal Grandfather Substance use disorder Maternal Grandmother Substance use disorder Sister Mental health disorder Breast cancer, Onset Age: 62 Family/Other Mental health disorder Social History Housing: Condominium Alcohol intake: current Alcohol intake frequency: a few times a week Patient Tobacco Use Status: Former Tobacco user Tobacco use type: Cigarette Cigarettes Per Day: 15 Years Smoked: 40 e-Cigarette/Vaping Use: Never Used service: No Current occupational status: employed Cognitive needs: No Hearing needs: No Vision needs: No Questionnaire PHQ-9 Over the last 2 weeks, how often have you been bothered by any of the following problems? 1. Little interest or pleasure in doing things: not at all 2. Feeling down, depressed, or hopeless: several days 3. Trouble falling or staying asleep, or sleeping too much: several days 4. Feeling tired or having little energy: several days 5. Poor appetite or overeating: not at all 6. Feeling bad about yourself - or that you are a failure or have let yourself or your family down: not at all 7. Trouble concentrating on things, such as reading the newspaper or watching television: not at all 8. Moving or speaking so slowly that other people could have noticed. Or the opposite - being so fidgety or restless that you have been moving around a lot more than usual: not at all 9. Thoughts that you would be better off or of hurting yourself in some way: not at all Total score: 3 Depression Screening Interpretation: Negative Depression Screening Done: Yes 31650 - PHQ-9 Billing: Yes Source: Developed by Drs. Willard Ziegler, Gayatri Serrano, Damian Urrutia and colleagues, with an educational pollo from [employer]. Thrive Questionnaire Date Thrive assessed: 12/05/23 I am a: Patient What is your living situation today?: I have a steady place to live Within the past 12 months, did the food you bought not last and you didn't have the money to get more?: Never true Within the past 12 months, did you worry whether your food would run out before you got money to buy more?: Never true Do you have trouble paying for medicines?: No Do you have trouble getting transportation to medical appointments?: No Do you have trouble paying your heating and electricity bill?: No Do you have trouble taking care of your child, family member or friend?: No Do you have trouble with day-to-day activities such as bathing, preparing meals, shopping, managing finances, etc.?: No Are you currently unemployed and looking for a job?: No Are you interested in more education?: No Please select the resources that you would like help with: None Currently or been in a relationship where the following occur: No concerns reported THRIVE Score: 0 AUDIT C Alcohol Use Questionnaire (AUDIT-C) 1. How often do you have a drink containing alcohol?: 2-4 times a month 2. How many drinks containing alcohol do you have on a typical day when you are drinking?: 3 or 4 3. How often do you have six or more drinks on one occasion?: Less than monthly Total Score: 4 ALANIS-7 AMB Questionnaire ALANIS-7 Date ALANIS - 7 assessed: 12/05/23 Feeling nervous, anxious, or on edge: 1 = Several days Not being able to stop or control worryin = Several days Worrying too much about different things: 1 = Several days Trouble relaxin = Not at all Being so restless that it is hard to sit still: 0 = Not at all Becoming easily annoyed or irritable: 0 = Not at all Feeling afraid as if something awful might happen: 1 = Several days Total ALANIS-7 score (0-4 normal; 5-9 mild; 10-14 moderate; 15-21 severe): 4 Source: Developed by Drs. Willard Ziegler, Gayatri Serrano, Damian Urrutia and colleagues, with an educational pollo from [employer]. ALANIS-7 Assessment Billing ALANIS-7 Assessment Tool: ALANIS-7 Assessment 57218 Review of Systems Const All systems reviewed & are unremarkable except as noted in HPI and below Reports no additional complaints Eyes Reports no additional complaints ENT Reports no additional complaints Card Reports no additional complaints Resp Reports no additional complaints GI Reports no additional complaints Reports no additional complaints Physical exam (Primary Care) Vital Signs: Last Vital Signs Pulse 78 12/05/23 08:24 BP 136/80 12/05/23 08:24 Pulse Ox 97 12/05/23 08:24 Oxygen Delivery Method Room Air 12/05/23 08:24 BMI result Body Mass Index 25.7 Tobacco/Smoking Status: Tobacco use Status Tobacco use date assessed 12/05/23 12/05/23 08:29 Patient Tobacco Use Status Former Tobacco user 12/05/23 08:29 Tobacco use type Cigarette 12/05/23 08:24 e-Cigarette/Vaping Use Never Used 12/05/23 08:24 PHQ-9: PHQ-9 Score PHQ-9: Total score 3 12/05/23 08:29 Depression Screening Interpretation: Negative Thrive Assessment: Date of Thrive Assessment Date Thrive assessed 12/05/23 12/05/23 08:29 Currently or been in a relationship where the following occur: No concerns reported Const General: no acute distress HENMT Head: Yes normal to inspection Ears: hearing grossly normal bilaterally Face and sinus: Yes normal facial exam Mouth: Normal oral and palatal mucosa present Teeth and gingiva: dentition normal Throat: Yes posterior oropharynx normal Eyes General: appearance normal, both eyes and all related structures Neck Neck: Yes no lymphadenopathy and Yes supple Resp Effort & Inspection: normal respiratory effort Auscultation: clear to auscultation bilaterally Cardio Rhythm: regular rhythm Heart sounds: S1 normal heart sound present and S2 normal heart sound present GI Inspection: Yes normal to inspection Palpation (GI): Soft to palpation Percussion: Yes normal to percussion Auscultation: normal bowel sounds Assessment and Plan Assessment & Plan (1) Breast cancer, right: Comment: age 49, s/p lumpectomy, on Tamoxifen for 5 years,positive genes, oncology [facility] q 6 months MR/mammogram Code(s): C50.911 - Malignant neoplasm of unspecified site of right female breast Plan: Follow-up with [facility] Oncology (2) Annual physical exam: Code(s): Z00.00 - Encounter for general adult medical examination without abnormal findings Plan: Well-balanced diet regular physical activity discussed with the patient she is up-to-date with colonoscopy and 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 (3) Osteopenia: Comment: DEXA 12/2022 T score 2.0 Code(s): M85.80 - Other specified disorders of bone density and structure, unspecified site Plan: Continue vitamin-D supplement regular exercise recheck DEXA next year Orders: Orders TSH reflex Free T4 Today C50.911 - Malignant neoplasm of unspecified site of right female breast, M85.80 - Other specified disorders of bone density and structure, unspecified site, Z00.00 - Encounter for general adult medical examination without abnormal findings UA w Microscopic Today C50.911 - Malignant neoplasm of unspecified site of right female breast, M85.80 - Other specified disorders of bone density and structure, unspecified site, Z00.00 - Encounter for general adult medical examination without abnormal findings Lipid Panel 1 Year Z00.00 - Encounter for general adult medical examination without abnormal findings Complete Blood Count Auto Diff 1 Year Z00.00 - Encounter for general adult medical examination without abnormal findings UA w Microscopic 1 Year Z00.00 - Encounter for general adult medical examination without abnormal findings [facility] [place]. Panel Fast Today C50.911 - Malignant neoplasm of unspecified site of right female breast, M85.80 - Other specified disorders of bone density and structure, unspecified site, Z00.00 - Encounter for general adult medical examination without abnormal findings Complete Blood Count Auto Diff Today C50.911 - Malignant neoplasm of unspecified site of right female breast, M85.80 - Other specified disorders of bone density and structure, unspecified site, Z00.00 - Encounter for general adult medical examination without abnormal findings Lipid Panel Today C50.911 - Malignant neoplasm of unspecified site of right female breast, M85.80 - Other specified disorders of bone density and structure, unspecified site, Z00.00 - Encounter for general adult medical examination without abnormal findings [facility] [place]. Panel Fast 1 Year Z00.00 - Encounter for general adult medical examination without abnormal findings TSH reflex Free T4 1 Year Z00.00 - Encounter for general adult medical examination without abnormal findings Coding Level of Care Code Est Pt Prev Care 40-64y(41691) Diagnoses Breast cancer, right C50.911 Annual physical exam Z00.00 Osteopenia M85.80 Additional Codes ALANIS-7 Assessment Billing - ALANIS-7 Assessment Tool: ALANIS-7 Assessment [id number] ([id number])
== END 2023-12-05 09:11 | disposition home or self-care (01) ==
PROVIDERS: PCP Internal Medicine; Visit Provider Internal Medicine
DX: Z00.00 Encounter for general adult medical examination without abnormal findings (principal); C50.911 Malignant neoplasm of unspecified site of right female breast; M85.80 Other specified disorders of bone density and structure, unspecified site
CPT/HCPCS: 99396

== ENCOUNTER 2025-02-04 10:15 | Outpatient (AMB) | payer OTHER, SELFPAY ==
[2025-02-04 10:17] VITALS: BP 118/74; PULSE 74; RESP 18; TEMP 36.6; O2SAT 98; BMI 25.8
--- NOTE | 2025-02-04 10:17 | A.OFFPC_ITS ---
Vital Signs 02/04/25 10:17 Height 5 ft 6 in Weight 160 lb BMI 25.8 BP 118/74 Blood Pressure Location Lt brachial Position Sitting Respiration 18 Pulse 74 Pulse Source Pulse Oximeter Temp 97.8 F Temp Source Oral Pulse Oximetry (%) 98 Oxygen Delivery Method Room Air Intake Visit Reasons: PE inactive insurance Intake Note: Pt is here today for PE. Allergies No Known Allergies Allergy (Verified 02/04/25 10:18) Medication List - Last Reconciled 02/04/25 by Amie Phelps MD clonazepam 0.5 mg PO NEEDED PRN Tobacco use date assessed: 02/04/25 Dental Screening Dental Screen Date: 02/04/25 Did you have a dental visit in the last 12 months?: Yes Did you have a dental problem in the last 6 months where you did not have access to dental care?: No Was dental information given to patient?: Patient has dentist HPI PE inactive insurance HPI Details Pt presents for PE. [facility] Medical History Anxiety Tobacco dependence Normal Pap smear Annual physical exam Breast cancer, right Surgical History (Updated 02/04/25 @ 10:46 by Amie Phelps MD) History of excision of mass (02/28/23) History of lumpectomy of right breast H/O colonoscopy Family History Father HTN (hypertension) Mother HTN (hypertension) Mental health disorder Sister Breast cancer, Onset Age: 53 Paternal Grandfather Substance use disorder Maternal Grandmother Substance use disorder Sister Mental health disorder Breast cancer, Onset Age: 62 Family/Other Mental health disorder Social History Housing: Condominium Alcohol intake: current Alcohol intake frequency: a few times a week Patient Tobacco Use Status: Former Tobacco user Tobacco use type: Cigarette Cigarettes Per Day: 15 Years Smoked: 40 e-Cigarette/Vaping Use: Never Used service: No Current occupational status: employed Cognitive needs: No Hearing needs: No Vision needs: No Questionnaire PHQ-9 Over the last 2 weeks, how often have you been bothered by any of the following problems? 1. Little interest or pleasure in doing things: not at all 2. Feeling down, depressed, or hopeless: several days 3. Trouble falling or staying asleep, or sleeping too much: several days 4. Feeling tired or having little energy: several days 5. Poor appetite or overeating: not at all 6. Feeling bad about yourself - or that you are a failure or have let yourself or your family down: several days 7. Trouble concentrating on things, such as reading the newspaper or watching television: not at all 8. Moving or speaking so slowly that other people could have noticed. Or the opposite - being so fidgety or restless that you have been moving around a lot more than usual: not at all 9. Thoughts that you would be better off or of hurting yourself in some way: not at all Total score: 4 Depression Screening Interpretation: Negative Depression Screening Done: Yes 16472 - PHQ-9 Billing: Yes Source: Developed by Drs. Willard Ziegler, Gayatri Serrano, Damian Urrutia and colleagues, with an educational pollo from [employer]. Thrive Questionnaire Date Thrive assessed: 02/04/25 I am a: Patient What is your living situation today?: I have a steady place to live Within the past 12 months, did the food you bought not last and you didn't have the money to get more?: Never true Within the past 12 months, did you worry whether your food would run out before you got money to buy more?: Never true Do you have trouble paying for medicines?: No Do you have trouble getting transportation to medical appointments?: No Do you have trouble paying your heating and electricity bill?: No Do you have trouble taking care of your child, family member or friend?: No Do you have trouble with day-to-day activities such as bathing, preparing meals, shopping, managing finances, etc.?: No Are you currently unemployed and looking for a job?: No Are you interested in more education?: No Please select the resources that you would like help with: None Currently or been in a relationship where the following occur: No concerns reported THRIVE Score: 0 AUDIT C Alcohol Use Questionnaire (AUDIT-C) 1. How often do you have a drink containing alcohol?: 2-4 times a month 2. How many drinks containing alcohol do you have on a typical day when you are drinking?: 3 or 4 3. How often do you have six or more drinks on one occasion?: Less than monthly Total Score: 4 ALANIS-7 AMB Questionnaire ALANIS-7 Date ALANIS - 7 assessed: 02/04/25 Feeling nervous, anxious, or on edge: 1 = Several days Not being able to stop or control worryin = Several days Worrying too much about different things: 1 = Several days Trouble relaxin = Several days Being so restless that it is hard to sit still: 0 = Not at all Becoming easily annoyed or irritable: 1 = Several days Feeling afraid as if something awful might happen: 1 = Several days Total ALANIS-7 score (0-4 normal; 5-9 mild; 10-14 moderate; 15-21 severe): 6 Source: Developed by Drs. Willard Ziegler, Gayatri Serrano, Damian Urrutia and colleagues, with an educational pollo from [employer]. ALANIS-7 Assessment Billing ALANIS-7 Assessment Tool: ALANIS-7 Assessment 66152 Review of Systems Const All systems reviewed & are unremarkable except as noted in HPI and below Eyes Reports no additional complaints ENT Reports no additional complaints Card Reports no additional complaints Resp Reports no additional complaints GI Reports no additional complaints Reports no additional complaints Physical exam (Primary Care) Vital Signs: Last Vital Signs Temp 97.8 F 02/04/25 10:17 Pulse 74 02/04/25 10:17 Resp 18 02/04/25 10:17 BP 118/74 02/04/25 10:17 Pulse Ox 98 02/04/25 10:17 Oxygen Delivery Method Room Air 02/04/25 10:17 BMI result Body Mass Index 25.8 Tobacco/Smoking Status: Tobacco use Status Tobacco use date assessed 02/04/25 02/04/25 10:22 Patient Tobacco Use Status Former Tobacco user 02/04/25 10:22 Tobacco use type Cigarette 02/04/25 10:22 e-Cigarette/Vaping Use Never Used 02/04/25 10:22 PHQ-9: PHQ-9 Score PHQ-9: Total score 4 02/04/25 10:43 Depression Screening Interpretation: Negative Thrive Assessment: Date of Thrive Assessment Date Thrive assessed 02/04/25 02/04/25 10:22 Currently or been in a relationship where the following occur: No concerns reported Const General: no acute distress HENMT Head: Yes normal to inspection Ears: hearing grossly normal bilaterally Face and sinus: Yes normal facial exam Throat: Yes posterior oropharynx normal Eyes General: appearance normal, both eyes and all related structures Neck Neck: Yes no lymphadenopathy and Yes supple Resp Effort & Inspection: normal respiratory effort Auscultation: clear to auscultation bilaterally Cardio Rhythm: regular rhythm Heart sounds: S1 normal heart sound present and S2 normal heart sound present GI Inspection: Yes normal to inspection Palpation (GI): Soft to palpation Percussion: Yes normal to percussion Auscultation: normal bowel sounds Coding Level of Care Code Est Pt Prev Care 40-64y(67238) Diagnoses Breast cancer, right C50.911 Annual physical exam Z00. Additional Codes ALANIS-7 Assessment Billing - ALANIS-7 Assessment Tool: ALANIS-7 Assessment 48303 ([id number]) PHQ-9 - 47965 - PHQ-9 Billing: Yes ([id number]) Assessment & Plan Assessment & Plan (1) Breast cancer, right: Comment: age 49, s/p lumpectomy, on Tamoxifen for 5 years,positive genes, oncology 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 Orders: Orders Complete Blood Count Auto Diff Today Z00.00 - Encounter for general adult medical examination without abnormal findings Lipid Panel Today Z00.00 - Encounter for general adult medical examination without abnormal findings UA w Microscopic Today Z00.00 - Encounter for general adult medical examination without abnormal findings Vitamin D 25-OH Total Today Z00.00 - Encounter for general adult medical examination without abnormal findings Lipid Panel 1 Year Z00.00 - Encounter for general adult medical examination without abnormal findings Complete Blood Count Auto Diff 1 Year Z00.00 - Encounter for general adult medical examination without abnormal findings UA w Microscopic 1 Year Z00.00 - Encounter for general adult medical examination without abnormal findings Comprehensive [place]. Panel Fast Today Z00.00 - Encounter for general adult medical examination without abnormal findings TSH reflex Free T4 Today Z00.00 - Encounter for general adult medical examination without abnormal findings Comprehensive [place]. Panel Fast 1 Year Z00.00 - Encounter for general adult medical examination without abnormal findings TSH reflex Free T4 1 Year Z00.00 - Encounter for general adult medical examination without abnormal findings Vitamin D 25-OH Total 1 Year Z00.00 - Encounter for general adult medical examination without abnormal findings
== END 2025-02-04 13:48 | disposition home or self-care (01) ==
PROVIDERS: PCP Internal Medicine; Visit Provider Internal Medicine
DX: Z00.00 Encounter for general adult medical examination without abnormal findings (principal); C50.911 Malignant neoplasm of unspecified site of right female breast

== ENCOUNTER → 2025-02-04 10:15 | Outpatient (BNVA) | payer OTHER, SELFPAY | PROVIDERS: PCP Internal Medicine; Visit Provider Internal Medicine | DX: Z00.00 Encounter for general adult medical examination without abnormal findings (principal); C50.911 Malignant neoplasm of unspecified site of right female breast | CPT/HCPCS: 96127 ==

== ENCOUNTER 2025-02-18 11:30 | Outpatient (REF) | payer OTHER, SELFPAY ==
[2025-02-18 16:15] LABS: Appearance Urine Clear; Glucose Urine UA Negative (Negative); MANUAL DIFF FLAG NO; PH 6.5 (5.0-9.0); Specific Gravity - Urine 1.020 (1.005-1.025); UMIC TRIGGER UA YES
[2025-02-18 16:18] LABS: Hematocrit 44.5 % (37.0-47.0); Hemoglobin 14.6 g/dl (12.0-16.0); Imm Gran Abs Auto 0.03 X10*3/uL (0.00-0.03); Imm Gran Pct Auto 0.3 % (0.0-0.4); Lymphocytes Absolute Auto 4.1 X10*3/uL (1.2-4.9); Mean Corpuscular HGB Conc 32.8 g/dl (31.0-35.0); Mean Corpuscular Hemoglobin 31.3 pg (27.0-33.0); Mean Corpuscular Volume 95.3 fL (80.0-98.0); NRBC Abs Auto 0.000 X10*3/uL (0.0-0.012); NRBC Pct Auto 0.0 /100WBC (0.0-0.2); Platelet Count 358 X10*3/uL (160-400); Red Blood Count 4.67 X10*6/uL (4.20-5.50); White Blood Count 8.8 X10*3/uL (4.8-10.8)
[2025-02-18 16:41] LABS: Alanine Aminotransferase 21 U/L (0-31); Albumin Level 4.6 g/dL (3.5-5.0); Alkaline Phosphatase 107 U/L (39-117); Anion Gap 13 (12-20); Aspartate Amino Transferase 24 U/L (5-31); Blood Urea Nitrogen 16 mg/dL (9-16); Calcium 9.4 mg/dL (8.4-10.2); Carbon Dioxide 26 mmol/L (22-29); Chloride 107 mmol/L (96-108); Estimated Glomerular Filt Rate > 60; Potassium 4.4 mmol/L (3.3-5.1); Sodium 142 mmol/L (135-145); Total Protein 7.5 g/dL (6.5-8.0)
== END 2025-02-18 11:31 | disposition home or self-care (01) ==
LOC: HO.HMGCLDS 11:30
PROVIDERS: PCP Internal Medicine; Visit Provider Internal Medicine
DX: Z00.00 Encounter for general adult medical examination without abnormal findings (principal); H53.47 Heteronymous bilateral field defects; Z82.49 Family history of ischemic heart disease and other diseases of the circulatory system
CPT/HCPCS: 36415; 80053; 81001; 84443; 85025; 96127

== ENCOUNTER 2025-02-18 11:30 | Outpatient (AMB) | payer OTHER, SELFPAY ==
[2025-02-18 11:35] VITALS: BP 106/72; PULSE 78; RESP 16; TEMP 36.4; O2SAT 97; BMI 26.3
--- NOTE | 2025-02-18 11:35 | A.OFFPC_ITS ---
Vital Signs 02/18/25 11:35 Height 5 ft 6 in Weight 163 lb BMI 26.3 BP 106/72 Blood Pressure Location Lt brachial Position Sitting Respiration 16 Pulse 78 Pulse Source Pulse Oximeter Temp 97.6 F Temp Source Oral Pulse Oximetry (%) 97 Oxygen Delivery Method Room Air Intake Visit Reasons: Ocular Migraines Intake Note: Pt is here today c/o ocular migraines Allergies No Known Allergies Allergy (Verified 02/18/25 11:36) Medication List - Last Reconciled 02/18/25 by Amie Phelps MD No Known Home Meds Tobacco use date assessed: 02/18/25 Dental Screening Dental Screen Date: 02/18/25 Did you have a dental visit in the last 12 months?: Yes Did you have a dental problem in the last 6 months where you did not have access to dental care?: No Was dental information given to patient?: Patient has dentist HPI Ocular Migraines HPI Details Patient presents complaining of intermittent change in her vision, no seeing the half of the visual field in the right eye lasting up to a few mins with intermittent flushing and zigzag lines in both eyes daily for the last 5 days. Patient denies headache vomiting weakness or numbness in extremities difficulty swallowing or speaking. She has been under lot of stress at work and is concerned because her mother had ruptured brain aneurysm in her 60s. Patient continues to smoke a pack a day. [facility] Medical History FH: brain aneurysm Anxiety Tobacco dependence Normal Pap smear Annual physical exam Breast cancer, right Surgical History History of excision of mass (02/28/23) History of lumpectomy of right breast H/O colonoscopy Family History Father HTN (hypertension) Mother HTN (hypertension) Mental health disorder Sister Breast cancer, Onset Age: 53 Paternal Grandfather Substance use disorder Maternal Grandmother Substance use disorder Sister Mental health disorder Breast cancer, Onset Age: 62 Family/Other Mental health disorder Social History Housing: Condominium Alcohol intake: current Alcohol intake frequency: a few times a week Patient Tobacco Use Status: Former Tobacco user Tobacco use type: Cigarette Cigarettes Per Day: 15 Years Smoked: 40 Packs per year/per ci.00 e-Cigarette/Vaping Use: Never Used service: No Current occupational status: employed Cognitive needs: No Hearing needs: No Vision needs: No Questionnaire PHQ-9 Over the last 2 weeks, how often have you been bothered by any of the following problems? 1. Little interest or pleasure in doing things: not at all 2. Feeling down, depressed, or hopeless: several days 3. Trouble falling or staying asleep, or sleeping too much: several days 4. Feeling tired or having little energy: several days 5. Poor appetite or overeating: not at all 6. Feeling bad about yourself - or that you are a failure or have let yourself or your family down: several days 7. Trouble concentrating on things, such as reading the newspaper or watching television: not at all 8. Moving or speaking so slowly that other people could have noticed. Or the opposite - being so fidgety or restless that you have been moving around a lot more than usual: not at all 9. Thoughts that you would be better off or of hurting yourself in some way: not at all Total score: 4 Depression Screening Interpretation: Negative Depression Screening Done: Yes Source: Developed by Drs. Willard Ziegler, Gayatri Serrano, Damian Urrutia and colleagues, with an educational pollo from [employer]. Thrive Questionnaire Date Thrive assessed: 02/04/25 I am a: Patient What is your living situation today?: I have a steady place to live Within the past 12 months, did the food you bought not last and you didn't have the money to get more?: Never true Within the past 12 months, did you worry whether your food would run out before you got money to buy more?: Never true Do you have trouble paying for medicines?: No Do you have trouble getting transportation to medical appointments?: No Do you have trouble paying your heating and electricity bill?: No Do you have trouble taking care of your child, family member or friend?: No Do you have trouble with day-to-day activities such as bathing, preparing meals, shopping, managing finances, etc.?: No Are you currently unemployed and looking for a job?: No Are you interested in more education?: No Please select the resources that you would like help with: None Currently or been in a relationship where the following occur: No concerns reported THRIVE Score: 0 AUDIT C Alcohol Use Questionnaire (AUDIT-C) 1. How often do you have a drink containing alcohol?: 2-4 times a month 2. How many drinks containing alcohol do you have on a typical day when you are drinking?: 3 or 4 3. How often do you have six or more drinks on one occasion?: Less than monthly Total Score: 4 ALANIS-7 AMB Questionnaire ALANIS-7 Date ALANIS - 7 assessed: 02/04/25 Feeling nervous, anxious, or on edge: 1 = Several days Not being able to stop or control worryin = Several days Worrying too much about different things: 1 = Several days Trouble relaxin = Several days Being so restless that it is hard to sit still: 0 = Not at all Becoming easily annoyed or irritable: 1 = Several days Feeling afraid as if something awful might happen: 1 = Several days Total ALANIS-7 score (0-4 normal; 5-9 mild; 10-14 moderate; 15-21 severe): 6 Source: Developed by Drs. Willard Ziegler, Gayatri Serrano, Damian Urrutia and colleagues, with an educational pollo from [employer]. Review of Systems Const All systems reviewed & are unremarkable except as noted in HPI and below ENT Reports no additional complaints Card Reports no additional complaints Resp Reports no additional complaints GI Reports no additional complaints Reports no additional complaints Neuro Reports no additional complaints Physical exam (Primary Care) Vital Signs: Last Vital Signs Temp 97.6 F 02/18/25 11:35 Pulse 78 02/18/25 11:35 Resp 16 02/18/25 11:35 BP 106/72 02/18/25 11:35 Pulse Ox 97 02/18/25 11:35 Oxygen Delivery Method Room Air 02/18/25 11:35 BMI result Body Mass Index 26.3 Tobacco/Smoking Status: Tobacco use Status Tobacco use date assessed 02/18/25 02/18/25 11:38 Patient Tobacco Use Status Former Tobacco user 02/18/25 11:38 Tobacco use type Cigarette 02/18/25 11:38 e-Cigarette/Vaping Use Never Used 02/18/25 11:38 PHQ-9: PHQ-9 Score PHQ-9: Total score 4 02/18/25 11:43 Depression Screening Interpretation: Negative Thrive Assessment: Date of Thrive Assessment Date Thrive assessed 02/04/25 02/18/25 11:38 Currently or been in a relationship where the following occur: No concerns reported Const General: no acute distress HENMT Head: Yes normal to inspection Ears: TM's normal bilaterally Face and sinus: Yes normal facial exam Eyes General: appearance normal, both eyes and all related structures Pupils: Equal, round and reactive pupils present and Pupils normal by confrontation EOM: EOMs intact bilaterally Direct Ophthalmoscopy: normal light reflex Neck Neck: Yes supple Resp Effort & Inspection: normal respiratory effort Auscultation: clear to auscultation bilaterally Cardio Rhythm: regular rhythm Heart sounds: S1 normal heart sound present and S2 normal heart sound present Neuro Cranial nerves: Yes CN's II-XII intact bilaterally and Yes Equal, round and reactive pupils present Gait exam (Neuro): Normal gait present Motor exam (neuro): 5/5 motor strength present throughout Coordination: [id number] test normal Coding Level of Care Code Est Pt Level 3 (04612) Diagnoses FH: brain aneurysm Z82.49 Hemianopia, bitemporal H53.47 Assessment & Plan Assessment & Plan (1) FH: brain aneurysm: Comment: mother Code(s): Z82.49 - Family history of ischemic heart disease and other diseases of the circulatory system Category: Medical Plan: For visual symptoms consistent with intermittent vision loss and family history of brain aneurysm in her mother patient will have an MRI of the brain to rule out aneurysm. 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 For any worsening symptoms patient was advised to go to the ER. She will follow-up after the MRI Orders: Orders Comprehensive Met. Panel Today H53.47 - Heteronymous bilateral field defects, Z82.49 - Family history of ischemic heart disease and other diseases of the circulatory system Complete Blood Count Auto Diff Today H53.47 - Heteronymous bilateral field defects, Z82.49 - Family history of ischemic heart disease and other diseases of the circulatory system MR head/brain wo/w con Today H53.47 - Heteronymous bilateral field defects, Z82.49 - Family history of ischemic heart disease and other diseases of the circulatory system Medications: Refilled clonazepam 0.5 mg PO NEEDED PRN 10 tabs 0RF Anxiety
== END 2025-02-18 15:55 | disposition home or self-care (01) ==
LOC: HO.HMCC 11:31
PROVIDERS: PCP Internal Medicine; Visit Provider Internal Medicine
DX: Z82.49 Family history of ischemic heart disease and other diseases of the circulatory system (principal); H53.47 Heteronymous bilateral field defects